=== PATIENT | female | born 1990 | race Caucasian/White ===

== ENCOUNTER 2024-04-28 03:43 | Emergency (ER) | payer SELFPAY ==
[2024-04-28] MEDS ORDERED: methylPREDNISolone Sodium Succinate 125 MG/2 ML SDV ONE (03:47)
[2024-04-28] MEDS: methylPREDNISolone Sodium Succinate 125 MG/2 ML SDV IM ONE (04:00)
[2024-04-28] MEDS ORDERED: diphenhydrAMINE 50 MG Cap ONE (05:12)
[2024-04-28] MEDS: diphenhydrAMINE 50 MG Cap PO ONE (05:15)
== END 2024-04-28 06:17 | disposition home or self-care (01) ==
LOC: LB.ED 03:43
DX: T78.40XA Allergy, unspecified, initial encounter (principal); F17.210 Nicotine dependence, cigarettes, uncomplicated; Z88.0 Allergy status to penicillin; Z79.899 Other long term (current) drug therapy
CPT/HCPCS: 96372; 99283; A9270; J2919